=== PATIENT | male | born 1945 | race Caucasian/White ===

== ENCOUNTER 2020-12-02 04:44 | Day surgery (SDC) | payer OTHER ==
[2020-11-30 16:04] VITALS: BMI 23.6
[2020-12-02 14:17] VITALS: BP 122/51; PULSE 41; TEMP 96.9
== END 2020-12-02 14:30 | disposition home or self-care (01) ==
LOC: JASU-ENDO 04:44
PROVIDERS: ATTEND Internal Medicine Gastroenterology
PROC: 0DB78ZX Excision of Stomach, Pylorus, Via Natural or Artificial Opening Endoscopic, Diagnostic (ICD-10-PCS; 2020-12-02)
PROC: 0DB48ZX Excision of Esophagogastric Junction, Via Natural or Artificial Opening Endoscopic, Diagnostic (ICD-10-PCS; 2020-12-02)
PROC: 0DB98ZX Excision of Duodenum, Via Natural or Artificial Opening Endoscopic, Diagnostic (ICD-10-PCS; principal; 2020-12-02 12:15)
DX: K21.00 Gastro-esophageal reflux disease with esophagitis, without bleeding (principal); K22.10 Ulcer of esophagus without bleeding; K29.50 Unspecified chronic gastritis without bleeding; R19.7 Diarrhea, unspecified
CPT/HCPCS: 88305-TC; 88312-TC; 88342-TC

== ENCOUNTER 2021-04-18 09:17 | Day surgery (SDC) | payer OTHER ==
[2021-04-11 13:13] VITALS: BMI 24.0
[~2021-04-18 09:17] MED LIST: CEFAZOLIN 1 GM/D5W 1 GM/50 ML BAG IVPB ONE; TRANEXAMIC ACID 1000 MG/10 ML VIAL IVPUSH ONE
[2021-04-18] MEDS ORDERED: MIDAZOLAM HCL 2 MG/2 ML SINGLE DOSE VIAL ONE (11:41)
[2021-04-18] MEDS ORDERED: SODIUM CHLORIDE 0.9% P/F 10 ML VIAL IJ ONE (11:41)
[2021-04-18] MEDS ORDERED: BUPIVACAINE LIPOSOME/PF (EXPAREL) 266 MG/20 ML VIAL ONE (11:41)
[2021-04-18] MEDS ORDERED: BUPIVACAINE HCL/PF 0.5% (5 MG/ML) 30 ML VIAL IJ ONE ×2 (11:41→11:42)
[2021-04-18] MEDS ORDERED: ONDANSETRON 4 MG/2 ML VIAL IVPUSH PRN ×2 (12:02→16:01)
[2021-04-18] MEDS ORDERED: HYDROmorphone HCl 2 MG/ML VIAL IVPB PRN ×2 (12:03→16:19)
[2021-04-18] MEDS ORDERED: LACTATED RINGERS SOLUTION 1,000 ML IV SCH ×2 (12:15→16:15)
[2021-04-18] MEDS ORDERED: CLINDAMYCIN PHOSPHATE 600 MG/4 ML VIAL ONE (13:30)
[2021-04-18] MEDS ORDERED: PROPOFOL 20 ML ONE ×4 (13:37)
[2021-04-18] MEDS ORDERED: TRANEXAMIC ACID 1000 MG/10 ML VIAL ONE ×3 (13:43→15:34)
[2021-04-18] MEDS ORDERED: VANCOMYCIN 1,000 MG VIAL (RESTRICTED TO ID ONLY) ONE (13:47)
[2021-04-18] MEDS ORDERED: BUPIVICAINE 0.25%/MORPH PF/KETOROLAC - 51ML DISP.SYRINGE IA ONE (15:01)
[2021-04-18] MEDS ORDERED: MAG HYDROX/AL HYDROX/SIMETH 30 ML UNIT-DOSE CUP PO PRN (16:01)
[2021-04-18] MEDS ORDERED: oxyCODONE HCL 5 MG TABLET PO PRN (16:21)
[2021-04-18] MEDS ORDERED: ACETAMINOPHEN 1000 MG/100 ML BAG IVPB ONE (16:21)
[2021-04-18] MEDS ORDERED: CEFAZOLIN 2 GM in DEXTROSE 5%-WATER - 100 ML IVPB SCH (19:30)
[2021-04-18] MEDS ORDERED: ceFAZolin SODIUM 1 GM VIAL ONE (21:15)
[2021-04-18] MEDS ORDERED: DEXTROSE 5%-WATER - 100 ML IVPB ONE (21:15)
[2021-04-18] MEDS: SENNOSIDES/DOCUSATE COMBO (SENNA PLUS) TABLET (UD) PO SCH (21:49)
[2021-04-18] MEDS: CEFAZOLIN 2 GM in DEXTROSE 5%-WATER - 100 ML IVPB SCH (21:49)
[2021-04-18] MEDS: ACETAMINOPHEN 500 MG TABLET (FP) PO SCH (21:49)
[2021-04-19] MEDS ORDERED: DEXTROSE 5%-WATER - 100 ML IVPB ONE (05:47)
[2021-04-19] MEDS ORDERED: ceFAZolin SODIUM 1 GM VIAL ONE (05:47)
[2021-04-19] MEDS: ACETAMINOPHEN 500 MG TABLET (FP) PO SCH ×3 (05:57→21:31)
[2021-04-19] MEDS: CEFAZOLIN 2 GM in DEXTROSE 5%-WATER - 100 ML IVPB SCH ×2 (05:57→14:27)
[2021-04-19] MEDS: oxyCODONE HCL 5 MG TABLET PO PRN ×2 (05:59→20:03)
[2021-04-19 08:43] LABS: CALCIUM 8.3 mg/dl (8.5-10); CREATININE 0.8 mg/dl (0.55-1.3)
[2021-04-19 09:56] LABS: HEMOGLOBIN 9.5 GM/dL (11.7-16.9); MCHC 32.9 g/dl (32.0-35.9); MEAN CELL VOLUME 76.1 fl (80-96); MEAN PLT VOLUME 8.2 fl (7.5-11.1); PLATELET COUNT 150 10^3/uL (134-434); RBC 3.81 M/mm3 (4.00-5.60); RDW 19.9 % (11.9-15.9); WHITE BLOOD COUNT 5.5 K/mm3 (4.0-10.0)
[2021-04-19] MEDS: MULTIVITAMINS (DAILY MVI) TABLET (FP) PO SCH (10:27)
[2021-04-19] MEDS: SENNOSIDES/DOCUSATE COMBO (SENNA PLUS) TABLET (UD) PO SCH ×3 (10:27→21:32)
[2021-04-19] MEDS: PANTOPRAZOLE 40 MG TABLET PO SCH (10:27)
[2021-04-19] MEDS: ASPIRIN 325 MG TABLET PO SCH ×2 (10:27→21:31)
[2021-04-19] MEDS ORDERED: SODIUM CHLORIDE 1,000 ML IV STA (13:59)
[2021-04-20] MEDS: oxyCODONE HCL 5 MG TABLET PO PRN ×2 (02:27→06:32)
[2021-04-20] MEDS: ACETAMINOPHEN 500 MG TABLET (FP) PO SCH (06:32)
[2021-04-20 06:46] VITALS: TEMP 98.2
[2021-04-20 09:15] LABS: HEMATOCRIT 27.6 % (35.4-49); HEMOGLOBIN 8.9 GM/dL (11.7-16.9); MCH 24.6 pg (25.7-33.7); MCHC 32.1 g/dl (32.0-35.9); MEAN CELL VOLUME 76.6 fl (80-96); MEAN PLT VOLUME 8.2 fl (7.5-11.1); PLATELET COUNT 142 10^3/uL (134-434); RBC 3.61 M/mm3 (4.00-5.60); RDW 19.9 % (11.9-15.9); WHITE BLOOD COUNT 6.4 K/mm3 (4.0-10.0)
[2021-04-20] MEDS: MULTIVITAMINS (DAILY MVI) TABLET (FP) PO SCH (09:57)
[2021-04-20] MEDS: PANTOPRAZOLE 40 MG TABLET PO SCH (09:57)
[2021-04-20] MEDS: ASPIRIN 325 MG TABLET PO SCH (09:57)
[2021-04-20] MEDS: SENNOSIDES/DOCUSATE COMBO (SENNA PLUS) TABLET (UD) PO SCH (09:57)
[2021-04-20 10:51] VITALS: BP 144/64; PULSE 60
== END 2021-04-20 12:53 | disposition home or self-care (01) ==
LOC: SUATTDRO 09:17 → FASUSAT 09:17 → EDSTATUS 13:30 → FM/S 17:00 → FASUSAT 04-20 12:53
PROVIDERS: ATTEND Nurse Practitioner Acute Care
PROC: 8E0YXBZ Computer Assisted Procedure of Lower Extremity (ICD-10-PCS; 2021-04-18)
PROC: 8E0Y0CZ Robotic Assisted Procedure of Lower Extremity, Open Approach (ICD-10-PCS; 2021-04-18)
PROC: 0SRD0J9 Replacement of Left Knee Joint with Synthetic Substitute, Cemented, Open Approach (ICD-10-PCS; principal; 2021-04-18 14:13)
DX: M17.12 Unilateral primary osteoarthritis, left knee (principal)
CPT/HCPCS: 20985; 27447; C1776; S2900; 36415; 73560-TC-LT-FY; 80048; 85027; 94760; 97010-GP; 97116-GP; 97161-GP